=== PATIENT | male | born 1990 | race American Indian/Alaskan Native ===

== ENCOUNTER 2019-01-18 12:39 | Emergency (ER) | payer OTHER ==
[2019-01-18 14:04] VITALS: BP 125/66
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
== END 2019-01-18 19:50 | disposition home or self-care (01) ==
LOC: ED 12:39
DX: S76.011A Strain of muscle, fascia and tendon of right hip, initial encounter (principal); I10 Essential (primary) hypertension; F32.9 Major depressive disorder, single episode, unspecified; F17.200 Nicotine dependence, unspecified, uncomplicated; X58.XXXA Exposure to other specified factors, initial encounter; Y93.89 Activity, other specified; Y92.89 Other specified places as the place of occurrence of the external cause; Y99.8 Other external cause status

== ENCOUNTER 2019-04-13 21:31 | Emergency (ER) | payer SELFPAY ==
[2019-04-13 21:35] VITALS: BP 122/90
--- NOTE | 2019-04-14 01:54 | XRay Report ---
PROCEDURE: XR SPINE CERVICAL 2-3V TECHNIQUE: 4 views of the cervical spine. HISTORY: Neck pain and right hand numbness. COMPARISONS: None. FINDINGS: Normal osseous mineralization. Body heights maintained. There is no abnormal subluxation. Intervertebral disc spaces are preserved. Prevertebral soft tissues unremarkable. Lung apices clear. Odontoid view suboptimal to evaluate the lateral mass position. There is no widening of the atlantode ns interval. IMPRESSION: No acute osseous abnormality or significant degenerative change. COMMENT: If concern for discogenic etiology of the patient's symptoms, MRI of the cervical spine coul d further evaluate. This document is electronically signed by Royal Cross DO., April 14 2019 01:52:57 AM ET
--- NOTE | 2019-04-22 16:52 | Emergency Department Report ---
Blank Doc - Documentation Documentation: Patient was not seen by a provider and patient left before receiving treatment
== END 2019-04-14 01:43 | disposition left against medical advice (07) ==
LOC: ED 21:31
DX: R20.0 Anesthesia of skin (principal); Z53.21 Procedure and treatment not carried out due to patient leaving prior to being seen by health care provider
CPT/HCPCS: 72040

== ENCOUNTER 2019-12-26 06:42 | Emergency (ER) | payer SELFPAY ==
[2019-12-26 06:49] VITALS: BP 123/76
--- NOTE | 2019-12-26 07:43 | Emergency Department Report ---
Chief Complaint: Extremity Injury, Lower Stated Complaint: LEFT KNEE PAIN Time Seen by Provider: 12/26/19 07:31 - HPI History of Present Illness: Patient is a 29-year-old -[place]i male that comes to the emergency room complaining of knee instability for 1 year. He states that he had an injury related to basketball playing about a year ago at that time his knee popped out. Since then he has had intermittent sensations of the knee popping out of place. It is interfering with his work. And now is occurring every other day. Patient is ambulatory without an effusion on exam in the ER. - ROS Review of Systems: Knee pain, chronic - Exam Vital Signs: Vital Signs 12/26/19 06:47 Temperature 97.9 F Pulse Rate 87 Respiratory 18 Rate Blood Pressure 123/76 O2 Sat by Pulse 100 Oximetry Physical Exam: No effusion on exam. Ambulatory to ER. This injury occurred over a year ago. UMA screening note: Focused history and physical exam performed. Due to findings the following was ordered: No life-threatening emergency. Chronic knee pain x1 year. Neurovascularly intact. Ambulatory. Patient discussed with doctor:: LENORA SCHWARZ ED Disposition for [facility] – [place] Clinical Impression: Knee pain Disposition: DC-01 TO HOME OR SELFCARE Is pt being admited?: No Does the pt Need Aspirin: No Condition: Stable Referrals: TURNER PAZ MD [Staff Physician] - 3-5 Days Time of Disposition: 07:48
== END 2019-12-26 08:04 | disposition home or self-care (01) ==
LOC: ED 06:42
DX: M25.562 Pain in left knee (principal)
CPT/HCPCS: 99282